=== PATIENT | female | born 1990 | race Caucasian/White ===

== ENCOUNTER 2018-09-20 13:04 | Emergency (ER) | payer MEDICAID ==
[~2018-09-20] VITALS: Ht 170.2 cm; Wt 61.8 kg
[2018-09-20] MEDS ORDERED: PredniSONE 20 MG TABLET PO ONE (17:15)
[2018-09-20] MEDS ORDERED: FLUCONAZOLE 150 MG TABLET PO ONE (17:15)
[2018-09-20 17:42] VITALS: BP 120/68
== END 2018-09-20 18:25 | disposition home or self-care (01) ==
LOC: EMS 13:04
DX: B35.4 Tinea corporis (principal); B34.9 Viral infection, unspecified
CPT/HCPCS: 99283; J7512